=== PATIENT | male | born 1960 | race Caucasian/White ===

== ENCOUNTER 2016-10-27 19:41 | Emergency (ER) | payer MEDICAID ==
[~2016-10-27] VITALS: Ht 167.6 cm; Wt 84.0 kg
[2016-10-27] MEDS ORDERED: KETOROLAC 60MG/2ML VIAL IM ONE (20:45)
[2016-10-27 22:05] VITALS: BP 142/81
== END 2016-10-27 22:05 | disposition home or self-care (01) ==
LOC: ER 19:43
DX: S63.502A Unspecified sprain of left wrist, initial encounter (principal); X58.XXXA Exposure to other specified factors, initial encounter; Y93.89 Activity, other specified; Y92.69 Other specified industrial and construction area as the place of occurrence of the external cause; Y99.0 Civilian activity done for income or pay
CPT/HCPCS: 73110; 73130; 96372; 99284; J1885

== ENCOUNTER 2018-04-05 07:03 | Emergency (ER) | payer MEDICAID ==
[~2018-04-05] VITALS: Ht 165.1 cm; Wt 73.0 kg
[2018-04-05 07:33] VITALS: BP 136/84
== END 2018-04-05 08:30 | disposition home or self-care (01) ==
LOC: ER 08:18
DX: H60.12 Cellulitis of left external ear (principal); E11.9 Type 2 diabetes mellitus without complications; F11.10 Opioid abuse, uncomplicated
CPT/HCPCS: 99283

== ENCOUNTER 2018-04-06 13:48 | Emergency (ER) | payer MEDICAID ==
[~2018-04-06] VITALS: Ht 165.1 cm; Wt 72.5 kg
[2018-04-06 16:32] LABS: BASOPHILS % 0.3 % (0.0-2.0); EOSINOPHILS % 0.3 % (0.0-5.0); HEMATOCRIT. 47.2 % (42.0-52.0); HEMOGLOBIN. 16.5 g/dL (14.0-18.0); LYMPHOCYTES % 24.4 % (20.0-50.0); MEAN CORPUSCULAR HEMOGLOBIN 31.4 pg (28.0-32.0); MEAN CORPUSCULAR VOLUME 89.9 fL (80.0-94.0); MEAN PLATELET VOLUME 8.3 fl (7.4-10.4); MONOCYTES % 7.6 % (2.0-8.0); NEUTROPHILS % 67.4 % (40.0-76.0); PLATELET 188 x1000/uL (130-400); RED BLOOD CELL COUNT 5.25 mill/uL (4.7-6.1); RED CELL DISTRIBUTION WIDTH 13.2 % (11.6-14.6)
[2018-04-06 16:37] LABS: CHLORIDE 104 mEq/L (98-107)
[2018-04-06 17:38] LABS: CLARITY URINE CLEAR (CLEAR); COLOR URINE YELLOW (YELLOW); KETONES URINE NEGATIVE (NEGATIVE); LEUKOCYTE ESTERASE URINE NEGATIVE (NEGATIVE); NITRITE URINE NEGATIVE (NEGATIVE); OCCULT BLOOD URINE NEGATIVE (NEGATIVE); PROTEIN URINE NEGATIVE (NEGATIVE); SPECIFIC GRAVITY URINE 1.019 (1.005-1.030)
[2018-04-06 18:17] VITALS: BP 116/76
== END 2018-04-06 18:55 | disposition home or self-care (01) ==
LOC: ER 13:48
DX: G51.0 Bell's palsy (principal); R51 Headache
CPT/HCPCS: 36415; 99285

== ENCOUNTER 2019-04-16 13:59 | Emergency (ER) | payer MEDICAID ==
[~2019-04-16] VITALS: Ht 165.1 cm; Wt 82.0 kg
[2019-04-16 17:26] VITALS: BP 118/80
== END 2019-04-16 18:09 | disposition home or self-care (01) ==
LOC: ER 13:59
DX: J06.9 Acute upper respiratory infection, unspecified (principal); E11.9 Type 2 diabetes mellitus without complications
CPT/HCPCS: 71045; 99283